=== PATIENT | male | born 1995 | race African-American/Black ===

== ENCOUNTER 2021-06-05 09:05 | Emergency (ER) | payer OTHER ==
[~2021-06-05] VITALS: Ht 185.4 cm; Wt 75.0 kg
[2021-06-05 10:49] LABS: CLARITY URINE CLEAR (CLEAR); COLOR URINE YELLOW (YELLOW); KETONES URINE NEGATIVE (NEGATIVE); LEUKOCYTE ESTERASE URINE NEGATIVE (NEGATIVE); NITRITE URINE NEGATIVE (NEGATIVE); OCCULT BLOOD URINE NEGATIVE (NEGATIVE); PH URINE 8.5 (4.5-8.0); PROTEIN URINE NEGATIVE (NEGATIVE); SPECIFIC GRAVITY URINE 1.011 (1.005-1.030); UROBILINOGEN URINE 0.2 E.U./dL (0.2-1.0)
[2021-06-05 11:20] VITALS: BP 128/80
== END 2021-06-05 11:28 | disposition home or self-care (01) ==
LOC: ER 09:05
DX: M54.5 Low back pain (principal); F12.10 Cannabis abuse, uncomplicated
CPT/HCPCS: 81003; 99283